=== PATIENT | female | born 1940 | race Caucasian/White ===

== ENCOUNTER 2016-07-17 23:25 | Emergency (ER) | payer MEDICARE ==
--- NOTE | ~2016-07-17 | CR21 ---
[facility]. [facility] A Service of [facility] & [facility] RADIOLOGY TEXT RESULTS PATIENT: HARRY SUTHERLAND LOCATION: SED : 38 UNIT #: [id number] AGE: [address]: Vladislav Sanchez MD SEX: F ORDER DR: [id number] [place] [id number] E MR#: [id number] Acc #: [id number] NAME: HARRY SUTHERLAND : 1940 SEX: F STUDY DATE/TIME: 07/18/2016 0:30 UNIT: SED ROOM: STUDY DESCRIPTION: CR Ankle Min 3 Views Rt Attending Physician: Vladislav Sanchez M.D. Ordering Physician: Vladislav Sanchez M.D. Primary Care Physician: Lashonda Rust M.D. MEDICAL IMAGING REPORT This report is preliminary unless electronic signature is present. EXAM Right ankle series INDICATIONS Right ankle pain beginning 3 weeks ago. PROCEDURE 3 views of the right ankle COMPARISON None FINDINGS No acute fracture or dislocation. IMPRESSION No acute findings Dictated by... Juan Figueroa M.D. THIS IS AN ELECTRONICALLY VERIFIED REPORT Juan Figueroa M.D. at 07/19/2016 9:54 PM EPIFANIO/porfirio TD: 07/18/2016 10:15 JOB #: [id number] MEDICAL IMAGING REPORT Page 1 of 1
[2016-07-17] MEDS ORDERED: ZANTAC (23:28)
[2016-07-17] MEDS ORDERED: LIPITOR (23:28)
[2016-07-17] MEDS ORDERED: DILTIAZEM (23:28)
[2016-07-17] MEDS ORDERED: ELIQUIS2.5 MG (23:28)
[2016-07-17] MEDS ORDERED: ASPIRIN (23:28)
[2016-07-17] MEDS ORDERED: SYNTHROID (23:29)
[2016-07-17 23:53] LABS: BASOPHIL% 0.3 % (0-2.5); EOSINOPHIL% 0.3 % (0.0-7.0); HEMATOCRIT 42.8 % (35.0-45.0); HEMOGLOBIN 14.3 gm/dL (12.0-16.0); LYMPHOCYTE# 1.4 X10e3 (1.0-3.5); LYMPHOCYTE% 11.6 % (17.0-45.0); MEAN CELL VOLUME 102.4 FL (83-96); MEAN CORPUSCULAR HEMOGLOBIN 34.2 PG (28-34); MEAN CORPUSCULAR HGB CONC 33.3 g/dL (30-36); MEAN PLATELET VOLUME 7.8 FL (6.5-11.5); MONOCYTE# 1.1 X10e3 (0-1.0); MONOCYTE% 9.4 % (3.0-12.0); NEUTROPHIL# 9.4 X10e3 (1.5-7.1); NEUTROPHIL% 78.4 % (40-75); PLATELET COUNT 265 X10e3 (140-420); RED BLOOD COUNT 4.18 X10e (3.90-5.30); RED CELL DISTRIBUTION WIDTH 13.8 % (11.0-15.5)
[2016-07-17 23:54] LABS: DIFF IND NO
[2016-07-18 00:06] LABS: BUN/CREATININE RATIO 13.33; CALCIUM SERUM 9.6 mg/dL (8.4-10.2); CREATININE SERUM 0.9 mg/dL (0.6-1.4); GLOM FILT RATE Estimated 61.7 mL/min (>60); POTASSIUM 4.3 mmol/L (3.5-5.1)
[2016-07-18] MEDS ORDERED: CLEOCIN HCL300 M1 PO (01:30)
[2016-07-18] MEDS ORDERED: VOLTAREN75 MG PO (01:30)
== END 2016-07-18 01:30 | disposition home or self-care (01) ==
LOC: SED 23:25
PROVIDERS: Emergency Medicine
DX: L03.115 Cellulitis of right lower limb (principal); K21.9 Gastro-esophageal reflux disease without esophagitis; J44.9 Chronic obstructive pulmonary disease, unspecified; F41.9 Anxiety disorder, unspecified; Z86.73 Personal history of transient ischemic attack (TIA), and cerebral infarction without residual deficits; I25.2 Old myocardial infarction; Z79.82 Long term (current) use of aspirin; Z79.899 Other long term (current) drug therapy
CPT/HCPCS: 36415; 73610; 80048; 85025; 96365; 96375; 99284; J1885; J2270; J2405